=== PATIENT | male | born 1980 | race Two or more races ===

== ENCOUNTER 2022-11-05 07:49 | Outpatient (CLI) | payer MEDICAID, SELFPAY ==
[2022-11-05 13:12] LABS: Albumin* 4.4 g/dL (3.3-5.0)
[2022-11-05 13:13] LABS: Chloride* 110 mmol/L (96-114); Potassium* 4.1 mmol/L (3.6-5.1); Sodium* 141 mmol/L (135-149)
[2022-11-05 13:15] LABS: Alkaline Phosphatase* 87 U/L (40-150); Aspartate Amino Transferase* 27 U/L (12-35); Bilirubin Total* 0.8 mg/dL (0.1-1.5); Blood Urea Nitrogen* 14 mg/dL (5-24); Carbon Dioxide* 24 mmol/L (20-32); Cholesterol* 230 mg/dL (90-199); Creatinine* 0.9 mg/dL (0.5-1.5); Estimated Glomerular Filt Rate 110 ml/min; Total Protein* 7.3 g/dL (6.0-8.3)
[2022-11-05 13:16] LABS: Alanine Aminotransferase* 38 U/L (4-50); Calcium* 8.9 mg/dL (8.4-10.6); Glucose* 113 mg/dL (60-115); HDL Cholesterol* 58 mg/dL (>=40); LDL Cholesterol Calculated 148 mg/dL (<100); Triglycerides* 120 mg/dL (40-149)
== END 2022-11-05 07:50 | disposition home or self-care (01) ==
LOC: FRMREF 07:50
PROVIDERS: PCP Family Medicine; Visit Provider Family Medicine
DX: Z00.00 Encounter for general adult medical examination without abnormal findings (principal); R03.0 Elevated blood-pressure reading, without diagnosis of hypertension; Z13.6 Encounter for screening for cardiovascular disorders
CPT/HCPCS: 80053; 80061